=== PATIENT | male | born 1960 | race African-American/Black ===

== ENCOUNTER 2020-11-05 11:45 | Outpatient (CLI) | payer OTHER, SELFPAY ==
--- NOTE | 2020-11-05 12:39 | ECG_ITS ---
Measurements Intervals [place] Rate: 60 P: 52 MA: 135 QRS: 61 QRSD: 98 T: 31 QT: 406 QTc: 406 Interpretive Statements SINUS RHYTHM INCOMPLETE RIGHT BUNDLE BRANCH BLOCK BASELINE ARTIFACT- V6 BORDERLINE ECG Electronically Signed On 11-05-2020 12:56:24 INSURANCE ACCOUNT SPECIALIST by Caden Aguilera D.O.
[2020-11-05 13:08] LABS: Hemoglobin A1C 12.7 % (<5.7)
[2020-11-05 13:10] LABS: Anion Gap 6 mmol/L (8-16); Blood Urea Nitrogen 12 mg/dL (9-20); Calcium 9.2 mg/dL (8.4-10.2); Carbon Dioxide 29 mmol/L (22-30); Chloride 102 mmol/L (98-107); Estimated Glomerular Filt Rate > 60; Glucose 291 mg/dL (75-110); Potassium 3.7 mmol/L (3.4-5.0); Sodium 137 mmol/L (137-145)
== END 2020-11-05 11:46 | disposition home or self-care (01) ==
PROVIDERS: Anesthesiology; Visit Provider Urology
DX: N52.9 Male erectile dysfunction, unspecified (principal); E11.9 Type 2 diabetes mellitus without complications; Z01.818 Encounter for other preprocedural examination; I45.10 Unspecified right bundle-branch block
CPT/HCPCS: 36415; 80048; 83036; 87077; 87086; 87088; 87186; 93005